=== PATIENT | male | born 1960 | race Caucasian/White ===

== ENCOUNTER 2019-12-09 15:40 | Emergency (ER) | payer OTHER ==
--- NOTE | 2019-12-09 15:56 | ED Physician Documentation ---
PD HPI UPPER EXT INJURY - Stated complaint Stated Complaint: LT HAND INJ - Chief complaint Chief Complaint: Ext Problem - History obtained from History obtained from: Patient - History of Present Illness Location: Left, Hand, Finger Type of injury: Fall (from ladder, about 7 feet up, landed to left hand. Pain at 5th MC area with deformity. Pain with ROM of the little finger.) Where injury occurred: Home Timing - onset: Today Timing - details: Abrupt onset, Still present Worsened by: Moving (limited ROM at the MCP.), Palpating Associated symptoms: No: Weakness, Numbness Contributing factors: No: Anticoagulated, Prior ortho surgery Similar symptoms before: Has not had sx before Review of Systems Constitutional: denies: Fever, Chills Nose: denies: Rhinorrhea / runny nose, Congestion Throat: denies: Sore throat Cardiac: denies: Chest pain / pressure Respiratory: denies: Cough GI: denies: Abdominal Pain, Nausea, Vomiting Skin: denies: Abrasion (s), Laceration (s) Neurologic: denies: Altered mental status, Headache PD PAST MEDICAL HISTORY - Past Medical History Cardiovascular: None Respiratory: None Neuro: None Endocrine/Autoimmune: None Musculoskeletal: None - Present Medications Home Medications: Ambulatory Orders Medication Instructions Recorded Confirmed Hydrocodone/Acetaminophen [[place] 1 each PO Q6H PRN #15 tablet 12/09/19 5-325 Tablet] - Allergies Allergies/Adverse Reactions: Allergies Allergy/AdvReac Type Severity Reaction Status Date / Time No Known Drug Allergies Allergy Verified 12/09/19 15:52 PD ED PE NORMAL - Vitals Vital signs reviewed: Yes - General General: Alert and oriented X 3, No acute distress, Well developed/nourished - HEENT HEENT: Atraumatic - Neck Neck: Supple, no meningeal sign, No bony TTP - Cardiac Cardiac: RRR, No murmur - Respiratory Respiratory: Clear bilaterally, Other (no chestwall deformity, some tenderness lateral mid chest at around ribs 5-8. ) - Abdomen Abdomen: Soft, Non tender - Derm Derm: Normal color, Warm and dry - Extremities Extremities: Other (left hand with tenderness and swelling at proximal 5th MC area. The MCP has deformity c/w dislocation versus fracture. Will get xray. ) - Neuro Neuro: Alert and oriented X 3, No motor deficit, No sensory deficit, Normal speech Results - Vitals Vitals: Vital Signs - 24 hr 12/09/19 12/09/19 15:50 17:46 Temperature 36.4 C L 37.3 C Heart Rate 70 69 Respiratory 14 18 Rate Blood Pressure 119/100 H 148/94 H O2 Saturation 100 100 Oxygen O2 Source Room air - Rads (name of study) chest xray Radiology: Prelim report reviewed (no fractures nor lung abnormality), See rad report left hand Radiology: Prelim report reviewed (impacted fracture at the hamate. Also dorsal dislocation of the proximal phalanx at the MCP. ), See rad report Procedures - Splint (location) ulnar gutter splint Splint applied by: Tech Type of splint: Fiberglass Other: Patient tolerated well, No complications, Neurovascular intact, Sling provided - Reduction Body part reduced: Left, Finger Fracture or dislocation: Dislocation Anesthesia: Other (local injection at the MCP area with lidocaine.) Reduction aftercare: Alignment improved (pulling finger and with pressure on phalanx end dorsal to the MC head, then there was a pop and the finger alignment improved. Finger feels much better.) PD MEDICAL DECISION MAKING - ED course Complexity details: considered differential, d/w patient Departure - Departure Disposition: 01 Home, Self Care Clinical Impression: Fracture of hamate of left wrist Qualifiers: Encounter type: initial encounter Hamate bone location: unspecified portion of hamate Fracture type: closed Fracture alignment: nondisplaced Qualified Code(s): S62.145A - Nondisplaced fracture of body of hamate [unciform] bone, left wrist, initial encounter for closed fracture Finger dislocation Qualifiers: Encounter type: initial encounter Qualified Code(s): S63.259A - Unspecified dislocation of unspecified finger, initial encounter Condition: Stable Record reviewed to determine appropriate education?: Yes Instructions: ED Fx Hand Closed Follow-Up: Maximino Lemus MD [Provider Admit Priv/Credential] - Prescriptions: Hydrocodone/Acetaminophen [[place] 5-325 Tablet] 1 each PO Q6H PRN #15 tablet PRN Reason: Pain Comments: Keep the splint in place for a week or so. Follow-up with orthopedics in about a week, call tomorrow for an appointment. Elevate ice and rest your hand often to reduce swelling. Ibuprofen or naproxen 2-3 times a day. Add Tylenol or hydrocodone as needed for pain. You will likely need some type of splinting or brace for likely 4 weeks as these heal. Discharge Date/Time: 12/09/19 17:53
[2019-12-09] MEDS ORDERED: oxyCODONE 5 MG TABLET PO STA (16:09)
[2019-12-09] MEDS ORDERED: KETOROLAC 30 MG/ML VIAL IM STA (16:09)
--- NOTE | 2019-12-09 17:01 | XRAY Report ---
PROCEDURE: Hand 3 View LT INDICATIONS: fall TECHNIQUE: 3 views of the hand(s) acquired. COMPARISON: None FINDINGS: Bones: Fifth metacarpophalangeal joint fracture. On one image, there is an apparent fracture seen of the bone along the dorsal aspect of the hamate. No definite, additional fractures are seen. Age-appropriate degenerative changes are seen. Soft tissues: No suspicious soft tissue calcifications. IMPRESSION: There is a dislocation seen of the fifth metacarpophalangeal joint. Apparent hamate fracture. Please correlate with focal tenderness. If clinically appropriate, please consider a dedicated CT for further evaluation. Reviewed by: Tolu Lou MD on 12/09/2019 4:00 PM [facility] Approved by: Tolu Lou MD on 12/09/2019 4:00 PM [facility] Station ID: [id number]
--- NOTE | 2019-12-09 17:02 | XRAY Report ---
PROCEDURE: Chest 2 View X-Ray INDICATIONS: fall from ladder; left ribs pain TECHNIQUE: 2 view(s) of the chest. COMPARISON: None. FINDINGS: Surgical changes and devices: Cholecystectomy clips are seen. Lungs and pleura: No pleural effusions or pneumothorax. Lungs are clear. Mediastinum: Mediastinal contours are normal. Heart size is normal. Bones and chest wall: No suspicious bony abnormalities. Age-appropriate degenerative changes are se en. S-shaped scoliotic curvature is incidentally noted. Soft tissues appear unremarkable. IMPRESSION: Clear lungs, without focal infiltrates. Postoperative and degenerative changes are seen. Reviewed by: Tolu Lou MD on 12/09/2019 4:01 PM [facility] Approved by: Tolu Lou MD on 12/09/2019 4:01 PM [facility] Station ID: [id number]
[2019-12-09 17:46] VITALS: BP 148/94
== END 2019-12-09 17:53 | disposition home or self-care (01) ==
LOC: ED 15:40
DX: S62.145A Nondisplaced fracture of body of hamate [unciform] bone, left wrist, initial encounter for closed fracture (principal); S63.287A Dislocation of proximal interphalangeal joint of left little finger, initial encounter; R07.81 Pleurodynia; W11.XXXA Fall on and from ladder, initial encounter; Y92.009 Unspecified place in unspecified non-institutional (private) residence as the place of occurrence of the external cause
CPT/HCPCS: 26770; 71046; 73130; 96372; 99283; 99284; A9270